=== PATIENT | male | born 2000 | race Hispanic/Latino ===

== ENCOUNTER 2023-11-01 15:56 | Inpatient (IN) | payer OTHER ==
[~2023-11-01] VITALS: Ht 175.3 cm; Wt 159.8 kg
[2023-11-01] MEDS: SODIUM CHLORIDE 0.9% 1000ML 1,000 ML IV ONE (16:40)
[2023-11-01 17:01] LABS: ALBUMIN 4.6 g/dL (3.5-5.0); ALBUMIN/GLOBULIN RATIO 0.4 (0.8-2.0); BILIRUBIN,TOTAL 0.4 mg/dL (0.2-1.2); POTASSIUM 3.9 mmol/L (3.5-5.1); TOTAL PROTEIN 17.6 g/dL (6.5-8.1)
[2023-11-01 18:04] LABS: ANION GAP 24.9 mmol/L (8-16)
[2023-11-01 18:18] LABS: WHITE BLOOD COUNT 4.75 x10e3/uL (4.8-10.8)
[2023-11-01 18:19] LABS: HEMOGLOBIN 13.2 g/dL (14.0-18.0); MEAN CORPUSCULAR HEMOGLOBIN 26.5 pg (28-32); MEAN CORPUSCULAR HGB CONC 31.4 g/dL (31-35); MEAN CORPUSCULAR VOLUME 84.2 fL (81-99); RED BLOOD COUNT 5.07 x10e6/uL (4.3-5.7)
[2023-11-01 18:20] LABS: RED CELL DISTRIBUTION WIDTH 15.2 % (11.7-14.4)
[2023-11-01 18:21] LABS: BASOPHILS % 1.1 % (0.0-1.0); EOSINOPHILS % 1.5 % (0.0-6.0); MONOCYTES % 7.4 % (4.4-11.3); NEUTROPHILS % 65.2 % (38.7-80.0); PLATELET COUNT 257 x10e3/uL (140-360)
[2023-11-01 18:22] LABS: BASOPHILS # (AUTO) 0.1 (0.0-0.1); EOSINOPHILS # (AUTO) 0.1 (0.0-0.4); LYMPHOCYTES # (AUTO) 1.1 (1.0-3.2); MONOCYTES # (AUTO) 0.4 (0.2-0.8); NEUTROPHILS # (AUTO) 3.1 (2.1-6.9)
[2023-11-01 18:25] LABS: CREATININE, SERUM 0.72 mg/dL (0.72-1.25)
[2023-11-01 18:55] VITALS: PULSE 104; RESP 19; TEMP 98.5
[2023-11-01] MEDS: INSULIN REGULAR, HUMAN 100 UNIT/1 ML IV ONE (19:09)
[2023-11-01 19:55] VITALS: PULSE 105; RESP 20; O2SAT 98
[2023-11-01] MEDS: LACTATED RINGER'S 1,000 ML INJ ONE (20:24)
[2023-11-01 22:00] VITALS: BP 161/86; PULSE 104; RESP 17; TEMP 98.9; O2SAT 100
[2023-11-01] MEDS ORDERED: ONDANSETRON HCL INJ 2MG/ML 2ML 2 MG/ML VIAL IV PRN (22:00)
[2023-11-01] MEDS ORDERED: DOCUSATE SODIUM 100 MG CAP PO PRN (22:00)
[2023-11-01] MEDS ORDERED: MAGNESIUM/ALUMINUM/SIMETHICONE 30 ML UDC PO PRN (22:00)
[2023-11-01] MEDS ORDERED: MELATONIN 3 MG TAB PO PRN (22:00)
[2023-11-01] MEDS ORDERED: ACETAMINOPHEN 325 MG TAB PO PRN (22:00)
[2023-11-01] MEDS ORDERED: HYDRALAZINE HCL 20 MG/ML VIAL IV PRN (22:00)
[2023-11-01] MEDS ORDERED: DEXTROSE 50% SYRINGE 50 ML IV PRN (22:15)
[2023-11-01 22:20] VITALS: BP 161/86; PULSE 104; RESP 17; TEMP 98.9; O2SAT 100
[2023-11-01 22:37] VITALS: BP 149/78; PULSE 103; RESP 18; TEMP 99.3; O2SAT 100
[2023-11-02] VITALS (8 sets, daily range): BP systolic 127–158; BP diastolic 70–87; PULSE 98–106; RESP 18–20; TEMP 98–99.1; O2SAT 98–100
[2023-11-02] MEDS: LACTATED RINGER'S 1,000 ML INJ SCH (00:16)
[2023-11-02] MEDS: LACTATED RINGER'S 1,000 ML IV ONE (00:18)
[2023-11-02] MEDS: INSULIN GLARGINE 100 UNITS/ML VIAL SQ ONE (00:20)
[2023-11-02] MEDS: INSULIN REGULAR, HUMAN 100 UNIT/1 ML SQ SCH ×3 (01:10→12:00)
[2023-11-02 06:32] LABS: BASOPHILS # (AUTO) 0.1 (0.0-0.1); EOSINOPHILS # (AUTO) 0.1 (0.0-0.4); EOSINOPHILS % 2.5 % (0.0-6.0); HEMATOCRIT 37.7 % (38.2-49.6); HEMOGLOBIN 15.6 g/dL (14.0-18.0); LYMPHOCYTES # (AUTO) 1.6 (1.0-3.2); LYMPHOCYTES % 31.9 % (18.0-39.1); MEAN CORPUSCULAR HEMOGLOBIN 34.7 pg (28-32); MEAN CORPUSCULAR HGB CONC 41.4 g/dL (31-35); MONOCYTES # (AUTO) 0.4 (0.2-0.8); MONOCYTES % 9.1 % (4.4-11.3); NEUTROPHILS # (AUTO) 2.7 (2.1-6.9); NEUTROPHILS % 55.1 % (38.7-80.0); PLATELET COUNT 182 x10e3/uL (140-360); RED BLOOD COUNT 4.49 x10e6/uL (4.3-5.7); RED CELL DISTRIBUTION WIDTH 15.3 % (11.7-14.4); WHITE BLOOD COUNT 4.86 x10e3/uL (4.8-10.8)
[2023-11-02 06:59] LABS: BLOOD UREA NITROGEN 10 mg/dL (7-26); BUN/CREATININE RATIO 9 (6-25); CALCIUM 8.7 mg/dL (8.4-10.2); CHLORIDE 94 mmol/L (98-107); CREATININE, SERUM 1.08 mg/dL (0.72-1.25); EST GLOMERULAR FILTRATION RATE 99 ML/MIN (>=60); GLUCOSE 254 mg/dL (74-118); MAGNESIUM 1.5 MG/DL (1.3-2.1); PHOSPHORUS 1.2 MG/DL (2.3-4.7); POTASSIUM 3.9 mmol/L (3.5-5.1)
[2023-11-02 07:03] LABS: CHOL/HDL RATIO 111.3 (3.9-4.7); CHOLESTEROL 668 MD/DL (0-199); HDL CHOLESTEROL 6 MG/DL (40-60)
[2023-11-02 07:24] LABS: THYROID STIMULATING HORMONE 0.692 uIU/mL (0.350-4.940)
[2023-11-02 07:53] LABS: TRIGLYCERIDES 3351 MG/DL (0-149)
[2023-11-02 07:57] LABS: SODIUM 131 mmol/L (136-144)
[2023-11-02 08:35] LABS: CREATINE KINASE 167 IU/L (30-200)
[2023-11-02] MEDS ORDERED: TRESIBA FL200 UNIT/1 (08:56)
[2023-11-02] MEDS ORDERED: METFORMIN HCL500 M1 PO (08:56)
[2023-11-02] MEDS ORDERED: LOSARTAN POTASS25 MG PO (08:56)
[2023-11-02] MEDS ORDERED: GLIMEPIRIDE2 MG PO (08:56)
[2023-11-02] MEDS ORDERED: HYDROCHLOROTH12.5 MG PO (08:56)
[2023-11-02] MEDS: MULTIVITAMINS/MINERALS TAB PO SCH (08:57)
[2023-11-02] MEDS: LOSARTAN POTASSIUM 25 MG TAB PO SCH (08:57)
[2023-11-02] MEDS ORDERED: INSULIN REGULAR, HUMAN 100 UNIT/1 ML SQ SCH (10:00)
[2023-11-02] MEDS ORDERED: SALINE 0.65% NAS SOLN 1 SPRAY BTL PRN (12:00)
[2023-11-02] MEDS ORDERED: DEXTROSE 50% SYRINGE 50 ML IV PRN (14:45)
[2023-11-02] MEDS: DEXTROSE 5%/0.45% SOD CHL 1,000 ML IV SCH (17:13)
[2023-11-02] MEDS: FLUTICASONE PROPIONATE NASAL SPRAY NS SCH (17:13)
[2023-11-02] MEDS: INSULIN LISPRO 100 UNIT/1 ML 3ML VIAL SQ SCH ×2 (17:23)
[2023-11-02] MEDS ORDERED: INSULIN GLARGINE 100 UNITS/ML VIAL SQ SCH (21:00)
[2023-11-02] MEDS: ATORVASTATIN 20 MG TAB PO SCH (21:21)
[2023-11-02] MEDS: INSULIN GLARGINE 100 UNITS/ML VIAL SQ SCH (21:28)
[2023-11-03] VITALS (30 sets, daily range): BP systolic 115–166; BP diastolic 64–98; PULSE 84–109; RESP 12–27; TEMP 98.1–99; O2SAT 95–100
[2023-11-03 07:35] LABS: ANION GAP 27.4 mmol/L (8-16); CALCIUM 8.2 mg/dL (8.4-10.2); CREATININE, SERUM 0.87 mg/dL (0.72-1.25)
[2023-11-03 07:36] LABS: POTASSIUM 3.4 mmol/L (3.5-5.1)
[2023-11-03 07:57] LABS: CHOL/HDL RATIO 63.9 (3.9-4.7); CHOLESTEROL 639 MD/DL (0-199); HDL CHOLESTEROL 10 MG/DL (40-60)
[2023-11-03 08:07] LABS: TRIGLYCERIDES 5004 MG/DL (0-149)
[2023-11-03] MEDS: FENOFIBRATE 145 MG TAB PO SCH (10:09)
[2023-11-03] MEDS: POTASSIUM CHLORIDE 20 MEQ TAB CR PO ONE (12:07)
[2023-11-03] MEDS ORDERED: INSULIN REGULAR, HUMAN 3ML VL 100 UNIT in SODIUM CHLORIDE 0.9% 100 ML IV PRN (12:30)
[2023-11-03 13:21] LABS: CLARITY,URINE CLEAR (CLEAR); COLOR,URINE YELLOW (YELLOW); LEUKOCYTE ESTERASE ,URINE NEGATIVE (NEGATIVE); NITRITE,URINE NEGATIVE (NEGATIVE); PH,URINE 6 (5 - 7); PROTEIN,URINE DIPSTICK NEGATIVE (NEGATIVE)
[2023-11-03 13:22] LABS: BACTERIA,URINE FEW /HPF; BILIRUBIN,URINE SMALL (NEGATIVE); EPITHELIAL CELLS,URINE RARE /LPF; GLUCOSE, URINE 500 (NEGATIVE); KETONES,URINE 2+ (NEGATIVE); RBC,URINE 0-5 /HPF (0-5); URINE UROBILINOGEN 0.2 mg/dL (0.2 - 1); WBC,URINE (MAN) 0-5 /HPF (0-5)
[2023-11-03] MEDS ORDERED: DEXTROSE 50% SYRINGE 50 ML IV PRN (14:15)
[2023-11-03] MEDS: INSULIN REGULAR, HUMAN 3ML VL 100 UNIT in SODIUM CHLORIDE 0.9% 100 ML IV SCH (14:43)
[2023-11-03 20:49] LABS: ANION GAP 20.5 mmol/L (8-16); CALCIUM 8.8 mg/dL (8.4-10.2); CREATININE, SERUM 0.87 mg/dL (0.72-1.25); MAGNESIUM 1.5 MG/DL (1.3-2.1); PHOSPHORUS 1.2 MG/DL (2.3-4.7); POTASSIUM 3.5 mmol/L (3.5-5.1)
[2023-11-03 21:01] LABS: CHOLESTEROL 627 MD/DL (0-199)
[2023-11-03] MEDS: PHOSPHORUS 250 MG TAB PO ONE (21:03)
[2023-11-03 21:07] LABS: HDL CHOLESTEROL < 5 MG/DL (40-60)
[2023-11-03 21:08] LABS: TRIGLYCERIDES 4699 MG/DL (0-149)
[2023-11-03] MEDS: INSULIN GLARGINE 100 UNITS/ML VIAL SQ SCH (21:17)
[2023-11-04] VITALS (46 sets, daily range): BP systolic 133–168; BP diastolic 68–97; PULSE 77–107; RESP 13–26; TEMP 98.1–99.1; O2SAT 94–100
[2023-11-04 06:51] LABS: ANION GAP 16.1 mmol/L (8-16); CALCIUM 8.2 mg/dL (8.4-10.2); CREATININE, SERUM 0.87 mg/dL (0.72-1.25); MAGNESIUM 1.6 MG/DL (1.3-2.1)
[2023-11-04 06:59] LABS: POTASSIUM 3.1 mmol/L (3.5-5.1)
[2023-11-04 14:22] LABS: CHOL/HDL RATIO 121.2 (3.9-4.7); CHOLESTEROL 606 MD/DL (0-199); HDL CHOLESTEROL 5 MG/DL (40-60)
[2023-11-04 14:34] LABS: TRIGLYCERIDES 4321 MG/DL (0-149)
[2023-11-04] MEDS: INSULIN GLARGINE 100 UNITS/ML VIAL SQ SCH (21:08)
[2023-11-04] MEDS: GUAIFENESIN/DEXTROMETHORPHAN LIQD 5 ML UDC PO PRN (23:15)
[2023-11-05] VITALS (26 sets, daily range): BP systolic 140–174; BP diastolic 73–103; PULSE 76–106; RESP 13–27; TEMP 97.3–99.1; O2SAT 95–100
[2023-11-05 06:57] LABS: BASOPHILS % 0.6 % (0.0-1.0); EOSINOPHILS # (AUTO) 0.1 (0.0-0.4); EOSINOPHILS % 2.6 % (0.0-6.0); HEMATOCRIT 35.3 % (38.2-49.6); HEMOGLOBIN 11.4 g/dL (14.0-18.0); LYMPHOCYTES # (AUTO) 1.5 (1.0-3.2); LYMPHOCYTES % 41.3 % (18.0-39.1); MEAN CORPUSCULAR HEMOGLOBIN 27.2 pg (28-32); MEAN CORPUSCULAR HGB CONC 32.3 g/dL (31-35); MEAN CORPUSCULAR VOLUME 84.2 fL (81-99); MONOCYTES # (AUTO) 0.2 (0.2-0.8); MONOCYTES % 6.6 % (4.4-11.3); NEUTROPHILS # (AUTO) 1.7 (2.1-6.9); NEUTROPHILS % 48.3 % (38.7-80.0); PLATELET COUNT 141 x10e3/uL (140-360); RED BLOOD COUNT 4.19 x10e6/uL (4.3-5.7); RED CELL DISTRIBUTION WIDTH 15.3 % (11.7-14.4); WHITE BLOOD COUNT 3.51 x10e3/uL (4.8-10.8)
[2023-11-05 07:16] LABS: CALCIUM 8.2 mg/dL (8.4-10.2); GLUCOSE 254 mg/dL (74-118)
[2023-11-05 07:54] LABS: MAGNESIUM 1.5 MG/DL (1.3-2.1); PHOSPHORUS 2.9 MG/DL (2.3-4.7)
[2023-11-05 08:02] LABS: BLOOD UREA NITROGEN < 5 mg/dL (7-26); CARBON DIOXIDE 18 mmol/L (22-29); CHLORIDE 101 mmol/L (98-107); CREATININE, SERUM 0.76 mg/dL (0.72-1.25); EST GLOMERULAR FILTRATION RATE 130 ML/MIN (>=60)
[2023-11-05 08:08] LABS: BUN/CREATININE RATIO 7 (6-25); SODIUM 134 mmol/L (136-145)
[2023-11-05] MEDS: POTASSIUM CHLORIDE 20 MEQ TAB CR PO STA (09:08)
[2023-11-05] MEDS: KCL 20 MEQ PACKET/ ORAL SOLN PO ONE (11:58)
[2023-11-05] MEDS: INSULIN GLARGINE 100 UNITS/ML VIAL SQ SCH (20:08)
[2023-11-06] VITALS (25 sets, daily range): BP systolic 124–163; BP diastolic 50–103; PULSE 71–102; RESP 15–26; TEMP 98–98.9; O2SAT 89–100
[2023-11-06 07:29] LABS: BASOPHILS % 0.4 % (0.0-1.0); EOSINOPHILS # (AUTO) 0.1 (0.0-0.4); EOSINOPHILS % 3.1 % (0.0-6.0); HEMATOCRIT 35.9 % (38.2-49.6); HEMOGLOBIN 11.3 g/dL (14.0-18.0); LYMPHOCYTES # (AUTO) 1.9 (1.0-3.2); LYMPHOCYTES % 42.5 % (18.0-39.1); MEAN CORPUSCULAR HEMOGLOBIN 26.7 pg (28-32); MEAN CORPUSCULAR HGB CONC 31.5 g/dL (31-35); MEAN CORPUSCULAR VOLUME 84.7 fL (81-99); MONOCYTES # (AUTO) 0.3 (0.2-0.8); MONOCYTES % 6.8 % (4.4-11.3); NEUTROPHILS # (AUTO) 2.1 (2.1-6.9); NEUTROPHILS % 46.8 % (38.7-80.0); PLATELET COUNT 134 x10e3/uL (140-360); RED BLOOD COUNT 4.24 x10e6/uL (4.3-5.7); RED CELL DISTRIBUTION WIDTH 15.8 % (11.7-14.4); WHITE BLOOD COUNT 4.54 x10e3/uL (4.8-10.8)
[2023-11-06 07:56] LABS: ANION GAP 15.9 mmol/L (8-16); BLOOD UREA NITROGEN < 5 mg/dL (7-26); BUN/CREATININE RATIO 7 (6-25); CALCIUM 8.4 mg/dL (8.4-10.2); CARBON DIOXIDE 22 mmol/L (22-29); CHLORIDE 101 mmol/L (98-107); CREATININE, SERUM 0.74 mg/dL (0.72-1.25); EST GLOMERULAR FILTRATION RATE 131 ML/MIN (>=60); GLUCOSE 186 mg/dL (74-118); MAGNESIUM 1.5 MG/DL (1.3-2.1); SODIUM 136 mmol/L (136-145)
[2023-11-06 07:57] LABS: POTASSIUM 2.9 mmol/L (3.5-5.1)
[2023-11-06] MEDS ORDERED: POTASSIUM CHLORIDE 20 MEQ TAB CR PO STA (08:40)
[2023-11-06] MEDS: KCL 20 MEQ PACKET/ ORAL SOLN PO STA (08:59)
[2023-11-06] MEDS: LOSARTAN POTASSIUM 25 MG TAB PO SCH (09:12)
[2023-11-06 09:18] LABS: PLATELET ESTIMATE ADEQUATE; PLATELET MORPHOLOGY COMMENT NORMAL; RBC MORPHOLOGY COMMENT NORMAL
[2023-11-06] MEDS: LOSARTAN POTASSIUM 100 MG TAB PO ONE (16:29)
[2023-11-06] MEDS ORDERED: DEXTROSE 50% SYRINGE 50 ML IV PRN ×2 (16:45→17:00)
[2023-11-06] MEDS: INSULIN LISPRO 100 UNIT/1 ML 3ML VIAL SQ SCH (18:21)
[2023-11-06] MEDS ORDERED: POTASSIUM CHLORIDE 20 MEQ TAB CR PO ONE (19:00)
[2023-11-06] MEDS: INSULIN REGULAR, HUMAN 100 UNIT/1 ML SQ SCH (21:22)
[2023-11-07] VITALS (22 sets, daily range): BP systolic 99–163; BP diastolic 59–103; PULSE 67–100; RESP 17–25; TEMP 97.9–98.9; O2SAT 80–100
[2023-11-07] MEDS: KCL 20 MEQ PACKET/ ORAL SOLN ONE ×2 (00:19→08:07)
[2023-11-07] MEDS: KCL 20 MEQ PACKET/ ORAL SOLN NG ONE (00:21)
[2023-11-07 06:50] LABS: BASOPHILS % 0.5 % (0.0-1.0); EOSINOPHILS # (AUTO) 0.1 (0.0-0.4); EOSINOPHILS % 2.3 % (0.0-6.0); HEMATOCRIT 39.1 % (38.2-49.6); LYMPHOCYTES # (AUTO) 2.4 (1.0-3.2); LYMPHOCYTES % 38.4 % (18.0-39.1); MEAN CORPUSCULAR HEMOGLOBIN 26.2 pg (28-32); MEAN CORPUSCULAR HGB CONC 30.7 g/dL (31-35); MEAN CORPUSCULAR VOLUME 85.4 fL (81-99); MONOCYTES # (AUTO) 0.4 (0.2-0.8); MONOCYTES % 6.9 % (4.4-11.3); NEUTROPHILS # (AUTO) 3.2 (2.1-6.9); NEUTROPHILS % 51.6 % (38.7-80.0); PLATELET COUNT 144 x10e3/uL (140-360); RED BLOOD COUNT 4.58 x10e6/uL (4.3-5.7); RED CELL DISTRIBUTION WIDTH 15.9 % (11.7-14.4); WHITE BLOOD COUNT 6.12 x10e3/uL (4.8-10.8)
[2023-11-07 07:16] LABS: ANION GAP 14.2 mmol/L (8-16); CALCIUM 8.4 mg/dL (8.4-10.2); CREATININE, SERUM 0.77 mg/dL (0.72-1.25)
[2023-11-07 07:20] LABS: POTASSIUM 3.2 mmol/L (3.5-5.1)
[2023-11-07 07:34] LABS: CHOL/HDL RATIO 18.7 (3.9-4.7); CHOLESTEROL 393 MD/DL (0-199); HDL CHOLESTEROL 21 MG/DL (40-60); TRIGLYCERIDES 1125 MG/DL (0-149)
[2023-11-07] MEDS: LOSARTAN POTASSIUM 100 MG TAB PO SCH (08:20)
[2023-11-07] MEDS: INSULIN LISPRO 100 UNIT/1 ML 3ML VIAL SQ SCH (18:42)
[2023-11-07] MEDS: ATORVASTATIN 40 MG TAB PO SCH (21:11)
[2023-11-07] MEDS: INSULIN GLARGINE 100 UNITS/ML VIAL SQ SCH (21:32)
[2023-11-07] MEDS: POTASSIUM CHLORIDE 20 MEQ TAB CR PO STA (21:36)
[2023-11-07] MEDS: KCL 20 MEQ PACKET/ ORAL SOLN PO STA (22:15)
[2023-11-08] VITALS: RESP 17; O2SAT 99
[2023-11-08 06:18] VITALS: BP 138/78; PULSE 83; RESP 17; O2SAT 98
[2023-11-08 07:31] LABS: ANION GAP 15.2 mmol/L (8-16); CALCIUM 8.7 mg/dL (8.4-10.2); CREATININE, SERUM 0.78 mg/dL (0.72-1.25)
[2023-11-08 07:36] LABS: POTASSIUM 3.2 mmol/L (3.5-5.1)
[2023-11-08 08:03] LABS: CHOL/HDL RATIO 13.3 (3.9-4.7); CHOLESTEROL 320 MD/DL (0-199); HDL CHOLESTEROL 24 MG/DL (40-60); TRIGLYCERIDES 729 MG/DL (0-149)
[2023-11-08 09:00] VITALS: BP 147/76; PULSE 98; RESP 25; TEMP 98.7; O2SAT 100
[2023-11-08] MEDS ORDERED: FENOFIBRATE145 MG PO (11:31)
[2023-11-08] MEDS ORDERED: INSULIN GL300 UNIT/2 SQ (11:31)
[2023-11-08] MEDS ORDERED: HUMALOG KW200 UNIT/1 SQ (11:31)
[2023-11-08] MEDS ORDERED: COZAAR100 MG PO (11:31)
[2023-11-08] MEDS ORDERED: ATORVASTATIN CA40 MG PO (11:31)
== END 2023-11-08 14:30 | disposition home or self-care (01) | DRG 638 ==
LOC: ER 16:16 → ERHOLD 19:43 → MED/SURG3 21:43 → ICU 11-03 12:30
PROVIDERS: ADMIT Internal Medicine Critical Care Medicine; ATTEND Internal Medicine Critical Care Medicine
DX: E11.10 Type 2 diabetes mellitus with ketoacidosis without coma (principal); E66.9 Obesity, unspecified; Z68.43 Body mass index [BMI] 50.0-59.9, adult; I10 Essential (primary) hypertension; R53.81 Other malaise; E78.5 Hyperlipidemia, unspecified; E78.1 Pure hyperglyceridemia; R79.89 Other specified abnormal findings of blood chemistry; E86.0 Dehydration; R74.01 Elevation of levels of liver transaminase levels; Z79.4 Long term (current) use of insulin; Z79.84 Long term (current) use of oral hypoglycemic drugs; Z83.3 Family history of diabetes mellitus
CPT/HCPCS: 36415; 80048; 80053; 80061; 81001; 82010; 82550; 82948; 83036; 83690; 83735; 84100; 84295; 84443; 84478; 85025; 94799; 96372; 99252; 99284; J1815; J7030; J7050